=== PATIENT | male | born 1995 | race Caucasian/White ===

== ENCOUNTER 2023-02-16 20:19 | Emergency (ER) | payer OTHER ==
[2023-02-16 20:22] VITALS: BP 142/86; RESP 16; TEMP 98.1; BMI 25.1
[2023-02-16] MEDS ORDERED: LIDOCAINE 5% TOPICAL PATCH TP ONE (21:07)
[2023-02-16] MEDS ORDERED: IBUPROFEN 600 MG TABLET (FP) PO ONE ×2 (21:07→21:13)
[2023-02-16] MEDS ORDERED: LIDOCAINE 5% TOPICAL PATCH ONE (21:13)
[2023-02-16] MEDS ORDERED: LIDOCAINE PATCH REMOVAL MC SCH (22:00)
[2023-02-16 22:56] VITALS: PULSE 84
== END 2023-02-17 01:21 | disposition home or self-care (01) ==
LOC: JERFT 20:19
DX: M54.6 Pain in thoracic spine (principal); M25.562 Pain in left knee; X50.0XXA Overexertion from strenuous movement or load, initial encounter; Y93.F2 Activity, caregiving, lifting; M62.838 Other muscle spasm; M54.13 Radiculopathy, cervicothoracic region; M48.03 Spinal stenosis, cervicothoracic region
CPT/HCPCS: 72125-TC; 73562-TC-LT-FY; 99284-25

== ENCOUNTER 2024-04-22 19:25 | Emergency (ER) | payer OTHER ==
[2024-04-22 20:02] VITALS: BP 143/88; PULSE 98; RESP 18; TEMP 97.8; BMI 26.6
[2024-04-22] MEDS ORDERED: LIDOCAINE 4% PATCH TP ONE (21:16)
[2024-04-22] MEDS: LIDOCAINE 4% PATCH TP ONE (21:17)
== END 2024-04-22 21:21 | disposition home or self-care (01) ==
LOC: JERFT 19:25
DX: M54.2 Cervicalgia (principal); X50.0XXA Overexertion from strenuous movement or load, initial encounter
CPT/HCPCS: 99283-25

== ENCOUNTER 2025-04-03 18:50 | Emergency (ER) | payer OTHER ==
[2025-04-03 18:57] VITALS: BP 139/99; PULSE 90; RESP 20; TEMP 97.4; BMI 26.6
== END 2025-04-03 20:07 | disposition home or self-care (01) ==
LOC: JERFT 18:50 → JER 18:50 → JERFT 20:07
DX: S29.012A Strain of muscle and tendon of back wall of thorax, initial encounter (principal); X50.0XXA Overexertion from strenuous movement or load, initial encounter; Y99.0 Civilian activity done for income or pay
CPT/HCPCS: 99283-25